=== PATIENT | female | born 1985 | race American Indian/Alaskan Native ===

== ENCOUNTER 2019-11-13 03:57 | Inpatient (IN) | payer BC, OTHER ==
[2019-11-13] MEDS ORDERED: Misoprostol 400 MCG (4 X 100 MCG TAB) RECTAL PRN (05:07)
[2019-11-13] MEDS ORDERED: Ondansetron 4 MG/2 ML SDV IVPUSH PRN (05:07)
[2019-11-13] MEDS ORDERED: Methylergonovine 0.2 MG/1 ML Amp IM PRN (05:07)
[2019-11-13] MEDS ORDERED: fentaNYL 100 MCG/2 ML SDV IVPUSH PRN (05:07)
[2019-11-13] MEDS ORDERED: Lidocaine 1% 30 ML SDV INJECT PRN (05:07)
[2019-11-13] MEDS ORDERED: Tranexamic Acid 1,000 MG in Sodium Chloride 0.9% 100 ML IV PRN (05:07)
[2019-11-13] MEDS ORDERED: Carboprost Tromethamine 250 MCG/1 ML Amp IM PRN (05:07)
[2019-11-13] MEDS ORDERED: Lactated Ringers 1,000 ML IV ONE (05:07)
[2019-11-13] MEDS ORDERED: Sodium Chloride 0.9% 10 ML Syringe FLUSH PRN (05:07)
[2019-11-13] MEDS ORDERED: Oxytocin/Normal Saline 30 UNIT/500 ML BAG IV SCH (05:15)
[2019-11-13] MEDS: Lactated Ringers 1,000 ML IV SCH ×2 (05:42→07:50)
[2019-11-13] MEDS ORDERED: Simethicone 80 MG Tab.Chew PO PRN (10:11)
[2019-11-13] MEDS ORDERED: Benzocaine/Menthol 20%-0.5% Spray 56 GM Canister TOP PRN (10:11)
[2019-11-13] MEDS ORDERED: Docusate Sodium 100 MG Cap PO PRN (10:11)
--- NOTE | 2019-11-13 10:53 | HP ---
CHIEF COMPLAINT: Spontaneous rupture of membranes. HISTORY OF PRESENT ILLNESS: A 34-year-old, 5, para 4-0-0-4 at 38 and 0/7 weeks gestation based on last menstrual period confirmed with 20 weeks ultrasound, presents to the hospital reporting spontaneous rupture of membranes of clear fluid at 3 o'clock this morning. Denies passage of any mucus plug or any significant vaginal bleeding. She does have a history of fast labors and was instructed to come in sooner rather than later. She is also known COVID positive, although asymptomatic. She was told to self-isolate until November 20, 2019. She denies any chest pain, shortness of breath. movement has been good. She has had no fevers, no chills. No other worrisome signs or symptoms. All of her records are available for review. She is anticipating only needing IV pain medications and not using intrathecal or other invasive pain management for her labor. She also is worried about history of hemorrhage which was resolved after manual removal of some retained blood clots, so we will be prepared for that as well. OBSTETRICAL HISTORY: 1. 08/19/2005, 40 weeks gestation, 24 hours of labor, 3175 g female, delivered vaginally. 2. 11/02/2009, 40 weeks gestation, 25 hours of labor, 3345 g male , delivered vaginally. 3. 08/09/2013, 40 weeks gestation, 5 hours of labor, 20 minutes of pushing, 3629 g female, delivered vaginally. 4. 05/22/2016, 40 weeks gestation, 2-1/2 hours of labor, 1 minute of pushing, 3570 g female infant, delivered vaginally, complicated by hemorrhage, resolved by removal of retained clots. The patient reported that all of her babies have been healthy. She has a history of group B Strep carrier with 1 of her prior pregnancies, and at least twice in labor, she had presented too far advance in labor to receive anything for pain. OBSTETRICAL LABS: Wet prep with 1+ clue cells. Hepatitis C negative. RPR nonreactive. Hepatitis B negative. Rubella immune. Blood type O positive. Urine drug screen negative. Glucose tolerance test of 130 and quad screen negative. care was started at [facility] at 10 weeks 5 days gestation, had about 5 visits there, and then she has had 4 visits with me at the office. PAST MEDICAL HISTORY: Abnormal Pap smear. Ears are pierced. No tattoos, transfusions, or IV drug use. Heart murmur in the past. Menarche age 13 or 14 with monthly cycles and 7 days of flow. History of gestational diabetes in a prior as well as precipitous deliveries and hemorrhage. FAMILY HISTORY: Father with diabetes. Two brothers with diabetes. A report of twins running on the paternal side of the family. Paternal aunt with breast cancer. Sister with hypothyroidism. Maternal grandfather has had a heart attack. Maternal aunt has breast cancer. Negative for anesthesia problems, defects, bleeding problems, clotting disorders, cystic fibrosis, and seizures. SOCIAL HISTORY: The patient is single. Lives with her significant other, Augustine Salazar. They have 3 children. This is their 2nd child together. 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 Significant other works as a kitchen supervisor at the [employer]. No use of alcohol or drugs. MEDICATIONS: vitamin 1 daily. ALLERGIES: Sulfa causes hives and urticaria. REVIEW OF SYSTEMS: Pertinent positives and negatives under the history admission and physical. Otherwise, 10-system review is negative. OBJECTIVE: General: Pleasant, well-appearing 34-year-old female. Vital Signs: Temperature is 98.1, pulse 64, blood pressure 109/58, respiratory rate of 16. HEENT: Unremarkable. Neck: Supple without adenopathy. Heart: Regular without murmur. Lungs: Clear to auscultation bilaterally with good chest expansion. Abdomen: Soft except with contractions. Baby is palpating vertex. heart tones are 150 beats per minute at baseline. Moderate [id number] variability. Accelerations noted. [place] shows contractions initially every 6 to 7 minutes at the time of arrival since augmenting with Pitocin. We are now addison about every 2 minutes to 3 minutes. Cervix on admission 3 cm dilated, 50% effaced, -3 station. Extremities: No edema, erythema, or tenderness noted. LABORATORY DATA: Hemoglobin 11.2, platelets 180. Rapid COVID test is negative. PLAN: The patient admitted to Labor and Delivery. We will continue to follow COVID precautions for the staff as well as her baby. The patient's test was recently positive in the outpatient setting and I am concerned that her rapid test is a false negative. She is also supposed to self-isolate until November 19. Therefore, taking her off precautions at this time would be premature. We will be anticipating vaginal delivery and I will be staying close by due to her history of fast labors. The hemorrhage cart will be immediately available outside the patient's room for rapid access to medications and should she have a repeat issue with hemorrhage. We will watch baby closely for any signs or symptoms of hypoglycemia due to her history of gestational diabetes with a prior and a glucose tolerance test this of 130. The patient's questions have been answered. [facility] [place] /[id number] JESSIKA
--- NOTE | 2019-11-13 11:23 | DEL ---
DATE: 11/13/2019 PREPROCEDURE DIAGNOSES: 1. 38 and 0/7 weeks by last menstrual period confirmed with 20-week ultrasound. 2. 5, para 4-0-0-4. 3. History of hemorrhage requiring manual removal of clots with last delivery. 4. History of gestational diabetes, prior . This , glucose tolerance test of 130; and 37-week ultrasound, baby was at the 75th percentile for growth. 5. History of fast labors. 6. Spontaneous rupture of membranes at 3 a.m. 7. COVID positive. The patient is supposed to remain on isolation until 11/20/2019. Rapid COVID test was negative on admission. 8. Blood type O positive, rubella immune, and group B strep negative. BRIEF HISTORY: A 34-year-old female who presented to the hospital about an hour and a half after spontaneous rupture of membranes with contractions every 6 to 7 minutes. No bloody show, but leaking clear fluid. Good movement. No other complaints. She knew to present early due to her history of rapid labors. Initially, contractions every 6 to 7 minutes and cervix of 3 cm. Pitocin augmentation was started for concern of potential premature rupture of membranes. The patient tolerated her labor very well. She only received 50 mcg of fentanyl for pain. DETAILS: The patient in dorsal lithotomy position, but still sitting upright at about a 60-degree angle, delivered a viable male over intact perineum with 1 push. There was no nuchal cord. The baby was dried and stimulated, had a strong vigorous cry after delayed 3-vessel umbilical cord was doubly clamped and cut, and baby placed skin to skin with mother. Cord blood sample was then obtained and labia inspected and no lacerations found. Placenta then delivered by gentle cord traction and concomitant uterine massage, inspected and intact. Unlike other placentas in patients with COVID, this placenta was normal appearing and not tattered in any way. The patient tolerated the procedure well. COMPLICATIONS: None. ESTIMATED BLOOD LOSS: 200 mL. DISPOSITION: Mother and baby to stay in the room. Parents have been well advised to keep their masks on at all times and also to keep the baby 6 feet away if they are going to be taking their masks off for any sort of relief and we can also place a physical barrier in the room if they would like. Unfortunately, we do not have a staffing at this time to keep mother and baby and mother is also breast feeding, so we would like them together for direct with mother having her mask on. Note; stage I 6 hours, stage II 1 push, stage III 5 minutes. [facility] /[id number]
[2019-11-13] MEDS: Acetaminophen 325 MG Tab PO PRN ×2 (11:24→19:28)
[2019-11-13] MEDS: Ibuprofen 800 MG Tab PO PRN ×2 (11:24→19:26)
[2019-11-14] MEDS: Ibuprofen 800 MG Tab PO PRN ×2 (03:58→12:24)
[2019-11-14] MEDS: Acetaminophen 325 MG Tab PO PRN ×2 (03:58→09:57)
[2019-11-14] MEDS ORDERED: Ferrous Sulfate 325 MG Tab PO SCH (08:00)
[2019-11-14 08:20] VITALS: BP 114/55; PULSE 59
[2019-11-14] MEDS ORDERED: Prenatal Multivitamin with Calcium/Folic Acid/Iron Tab PO SCH (09:00)
--- NOTE | 2019-11-21 22:02 | DISCH ---
ADMITTING DIAGNOSES: 1. 38-0/7 weeks' by last menstrual period. 2. 5, para 4-0-0-4. 3. History of hemorrhage, requiring manual removal of clots with last delivery. 4. History of gestational diabetes, prior . This , glucose tolerance test of 130. 37-week ultrasound. Baby at 75th percentile for growth. 5. History of fast labors. 6. Spontaneous rupture of membranes. 7. Coronavirus disease positive as an outpatient and the patient supposedly remaining on isolation until 11/20/2019. Rapid COVID test was negative on admission. 8. Blood type O positive, rubella immune, and group B strep negative. DISCHARGE DIAGNOSES: 1. 38-0/7 weeks' by last menstrual period. 2. 5, now para 5-0-0-5. 3. Status post spontaneous vaginal delivery, precipitous. 4. History of hemorrhage, requiring manual removal of clots with last delivery. 5. History of gestational diabetes, prior . This , glucose tolerance test of 130. 37-week ultrasound. Baby at 75th percentile for growth. 6. History of fast labors. 7. Spontaneous rupture of membranes. 8. Coronavirus disease positive as an outpatient and the patient supposedly remaining on isolation until 11/20/2019. Rapid COVID test was negative on admission. 9. Blood type O positive, rubella immune, and group B strep negative. BRIEF HISTORY: A 34-year-old female presented to the hospital about an hour and a half after spontaneous rupture and addison only 6 to 7 minutes. No bloody show, but good movement. She was otherwise asymptomatic and doing well. Pitocin was used for augmentation for a concern of premature rupture of membranes and she tolerated her 6 hours of labor quite well, receiving 150 mcg of fentanyl for pain. She rapidly had changed from 6 to 10 cm and delivered the baby in only 1 push, essentially sitting straight up, and placenta delivered about 5 minutes afterwards. The delivery itself was uncomplicated, and estimated blood loss of only about 200 mL, and she did not require any repairs, and there were no complications of hemorrhage. FINDINGS: Viable male , scores of 8 and 9, weight 7 pounds 11 ounces, 3485 g. HOSPITAL COURSE: Hospital course good. After delivery, she did quite well. She was ambulating, tolerating regular diet, voiding without difficulties, passing flatus, and felt ready to go home on day #1. She did not have any symptoms of COVID while she was in the hospital nor before she was in the hospital, but she and her son were both known positives. DISCHARGE CONDITION: Good. PHYSICAL EXAMINATION: Vital Signs: Temperature is 98.1, pulse was 59, blood pressure 114/55, respiratory rate of 18. Heart: Regular without murmurs. Lungs: Clear to auscultation bilaterally. Abdomen: Soft, nontender. Positive bowel sounds, and fundus was firm and below the umbilicus. Extremities: No edema, erythema, or tenderness noted. LABORATORY DATA: Admission hemoglobin was 11.2, platelets were 180. Labs not repeated. DISPOSITION: Home with family. MEDICATIONS: Tylenol 650 mg every 6 hours as needed for pain, ibuprofen 800 mg every 8 hours as needed for pain, vitamin continue 1 daily, iron she can continue once to twice daily for the supply that she has at home, and Colace 100 mg twice daily as needed for constipation. FOLLOWUP: She will need a visit at 6 weeks. We will also check on her as far as depression concerns go when she brings her baby in for his well-child checks and a circumcision. All of the patient's questions were answered. She was given routine post vaginal delivery care instructions for mother. [facility] /[id number]
== END 2019-11-14 13:55 | disposition home or self-care (01) | DRG 560 ==
LOC: DL.OBCHECK 03:57 → DL.OB 05:40 → OBSVTOIN 09:24
PROVIDERS: ADMIT Family Medicine; ATTEND Family Medicine
PROC: 10E0XZZ Delivery of Products of Conception, External Approach (ICD-10-PCS; principal; 2019-11-13)
PROC: 8E0ZXY6 Isolation (ICD-10-PCS; 2019-11-13)
DX: O80 Encounter for full-term uncomplicated delivery (principal); Z3A.38 38 weeks gestation of pregnancy; Z37.0 Single live birth; Z09 Encounter for follow-up examination after completed treatment for conditions other than malignant neoplasm; Z86.19 Personal history of other infectious and parasitic diseases; Z11.59 Encounter for screening for other viral diseases
CPT/HCPCS: 36415; 59409; 85027; A9270-GY; J2590; J3010; J7120; U0002

== ENCOUNTER 2021-11-30 13:01 | Emergency (ER) | payer BC, OTHER ==
[2021-11-30] MEDS ORDERED: Amoxicillin/Clavulanate K 875-125 MG Tab PO ONE ×2 (13:02→14:05)
[2021-11-30 13:24] VITALS: BP 140/83; PULSE 76
[2021-11-30] MEDS ORDERED: methylPREDNISolone Sodium Succinate 125 MG/2 ML SDV IM ONE (13:56)
[2021-11-30] MEDS ORDERED: Amoxicillin/Clavulanate K 875-125 MG Tab ONE ×2 (14:15→14:24)
== END 2021-11-30 14:32 | disposition home or self-care (01) ==
LOC: DL.ED 13:01
DX: L27.0 Generalized skin eruption due to drugs and medicaments taken internally (principal); T36.8X5A Adverse effect of other systemic antibiotics, initial encounter; Z88.1 Allergy status to other antibiotic agents; Z88.2 Allergy status to sulfonamides
CPT/HCPCS: 96372; 99282; 99283; A9270-GY; J2930